=== PATIENT | female | born 1950 | race Caucasian/White ===

== ENCOUNTER 2019-01-08 10:55 | Emergency (ER) | payer OTHER ==
--- NOTE | 2019-01-08 10:56 | PDOC ---
History of Present Illness - General Chief Complaint: Pain, Acute Stated Complaint: RIGHT ARM PAIN Time Seen by Provider: 01/08/19 10:56 History Source: Patient Exam Limitations: No Limitations - History of Present Illness Initial Comments: 68 year old female with PMH spinal stenosis, chronic low back pain getting epidural steroid injections presented to ED for right wrist pain and left big toe pain s/p mechanical fall last night. Pt reported she was walking, felt her left sided sciatica, which caused her legs to give out, causing her to fall forward to the ground. She believes she was trying to brace herself with her arms on the way down. She denied head injury/LOC/vomiting, neck pain, back pain , headache, visual changes, weakness, numbness, tingling, abdominal pain, chest pain, shortness of breath, palpitations, elbow pain, knee pain, shoulder pain. Pt reported she took ibuprofen last night and this AM with minimal relief of her pain. ROS General: denied fever, chills, generalized weakness. HEENT: denied sore throat, rhinorrhea, ear pain. Cardiovascular: denied chest pain, palpitations, syncope, diaphoresis. Respiratory: denied shortness of breath, cough, sputum production, hemoptysis. Gastrointestinal: denied abdominal pain, nausea, vomiting, diarrhea, constipation, blood in stool. Genitourinary: denied dysuria, increased urinary frequency, hematuria, urinary incontinence, flank pain. Back: denied back pain. Musculoskeletal: admitted to wrist pain, wrist swelling, first toe pain, first toe swelling. Neurological: denied headache, dizziness, numbness, tingling, weakness. Integumentary: denied rash, laceration, abrasion. Hematologic/Lymphatic: denied bruising or bleeding. PE Constitutional: Well-nourished, Well-developed, appearing stated age. Airway: intact Breathing: bilateral breath sounds Circulation: 2+ carotid pulse B/L HEENT: head is normocephalic, atraumatic. No facial bones tenderness to palpation. No rendon sign. No raccoon eyes. EOMI. PERRLA. Neck: supple. Full ROM. no midline c-spine tenderness to palpation. No step offs. Cardiovascular: regular heart rhythm. no murmurs. no pericardial friction rub. Chest wall: No tenderness to palpation of anterior chest wall. No deformity to anterior chest wall. Respiratory: clear to auscultation bilaterally. no crackles, rhonchi or wheezing. no stridor. Gastrointestinal: soft, nontender. normal bowel sounds. no rebound, guarding, masses. No ecchymoses. Back: no midline T-spine or L-spine tenderness to palpation. No step offs. Pelvis: lower extremities equal in length without external rotation. No hip tenderness to palpation. Extremities: right wrist with swelling/deformity/ecchymoses/tenderness. 2+ radial pulse. neurovascularly intact right hand. no pain with elbow flexion/ extension. left 1st toe tenderness to DIP/PIP. no tenderness to left medial/ lateral malleulous, navicular area or base of 5th MT. Neurological: CN 2-12 grossly intact. moves all four extremities. Psych: awake, alert, oriented x3. follows commands. answers questions appropriately. Past History - Past Medical History Allergies/Adverse Reactions: Allergies Allergy/AdvReac Type Severity Reaction Status Date / Time aspirin Allergy Unknown unknown Verified 01/08/19 11:23 decongestants AdvReac Intermediate palpitation Uncoded 01/08/19 11:23 s triamterenehcth AdvReac Intermediate blurred Uncoded 01/08/19 11:23 vission dizziness Home Medications: Ambulatory Orders Gabapentin 300 mg PO TID 01/08/19 Procedures - Splinting Splint Location: Right: Forearm Pre-Proc Neuro Vasc Exam: normal Hand-Made Type: orthoglass Splint Type: Yes: Volar Post-Proc Neuro Vasc Exam: normal Александр Bandage: yes Sling: Yes Complications: No Post splint xray: No Medical Decision Making - Medical Decision Making 68 year old female with above PMH presented to ED for right wrist pain and left 1st toe pain s/p mechanical fall today she attributed to her sciata. Initial Vital Signs Temp Pulse Resp BP Pulse Ox 98.3 F 78 19 153/80 100 01/08/19 10:55 01/08/19 10:55 01/08/19 10:55 01/08/19 10:55 01/08/19 10:55 Afebrile. No tachycardia. No tachypnea. Hypertensive. No hypoxia on room air. Labs ordered: none Imaging ordered: right wrist XR, right forearm XR, left 1st toe/foot XR Medications ordered: Tylenol 975 mg PO once Forearm XR report: Name: [facility] DEPARTMENT OF RADIOLOGY Phys: Leila Morrell RESIDENT : 1950 Age: 68 Sex: F [facility] Acct: [id number] Loc: [facility] [address] Exam Date: 01/08/19 Status : [place] [address] Unit Number: [id number] EXAM#: TYPE/EXAM: RESULT: RAD/FOREARM- RIGHT ADDENDUM* ADDENDUM #[address] Morrell in the [facility] ER on 01/08/2019 at 1205 hours. ORIGINAL REPORT Right forearm: Pain. 2 views of the right forearm reveal a subtle distal radial impaction fracture. The other bones are intact. There is loss of bone density. Impression: Subtle distal radial impaction fracture. Wrist films would be helpful Reported By: Dejuan Jensen MD 01/08/19 1208 Right forearm: Pain. 2 views of the right forearm reveal a subtle distal radial impaction fracture. The other bones are intact. There is loss of bone density. Impression: Subtle distal radial impaction fracture. Wrist films would be helpful Reported By: Dejuan Jensen MD 01/08/19 1885 ----Name: [facility] DEPARTMENT OF RADIOLOGY Phys: Leila Morrell RESIDENT : 1950 Age: 68 Sex: F [facility] Acct: [id number] Loc: [facility] [address] Exam Date: 01/08/19 Status: [place] [address] Unit Number: [id number] EXAM #: TYPE/EXAM: RESULT: RAD/FOREARM- RIGHT Right forearm: Pain. 2 views of the right forearm reveal a subtle distal radial impaction fracture. The other bones are intact. There is loss of bone density. Impression: Subtle distal radial impaction fracture. Wrist films would be helpful Reported By: Dejuan Jensen MD 01/08/19 1156 Wrist XR report: Name: [facility] DEPARTMENT OF RADIOLOGY Phys: Leila Morrell RESIDENT : 1950 Age: 68 Sex: F [facility] Acct: [id number] Loc: [facility] [address] Exam Date: 01/08/19 Status : [place] [address] Unit Number: [id number] EXAM#: TYPE/EXAM: RESULT: [id number] RAD/WRIST- RIGHT ADDENDUM * ADDENDUM #1 The wrist image configuration does not match the right forearm image configuration. Could this be the opposite wrist? Spoke with Rangel the technologist who insists the two sets of images are of the right side. Follow up imaging is needed to clarify this. Spoke with Dr. Morrell regarding this. ORIGINAL REPORT Right wrist: Pain. 3 views of the right wrist show a questionable navicular fracture but the distal radius appears intact. This does not coincide with what is seen on the forearm films which a distal radial fracture is suggested. Clinical correlation suggested. Further imaging may be needed. Findings discussed with ER staff at [facility]/Dr. Morrell 01/08/2019 at 1205 hours. Reported By: Dejuan Jensen MD 01/08/19 1234 Right wrist: Pain. 3 views of the right wrist show a questionable navicular fracture but the distal radius appears intact. This does not coincide with what is seen on the forearm films which a distal radial fracture is suggested. Clinical correlation suggested. Further imaging may be needed. Findings discussed with ER staff at [facility]/Dr. Morrell 01/08/2019 at 1205 hours. Reported By: Dejuan Jensen MD 01/08/19 1207 Left foot/toes XR report: Name: [facility] DEPARTMENT OF RADIOLOGY Phys: Leila Morrell RESIDENT : 1950 Age: 68 Sex: F [facility] Acct: [id number] Loc: [facility] [address] Exam Date: 01/08/19 Status : [place] [address] Unit Number: [id number] EXAM#: TYPE/EXAM: RESULT: [id number] RAD/FOOT-LEFT Left foot: Pain. Fall. 3 views of the left foot have been submitted. There is loss of bone density with a fracture at the base of the fifth metatarsal and a possible fracture of the distal phalanx of the great toe. There is bunion formation by the first MTP joint and other arthritic changes in the toes. Correlation recommended. Reported By: Dejuan Jensen MD 01/08/19 1155 Pt informed of results. Pt refused hard sole shoe. Pt reported no pain to the base of the 5th MT, no tenderness on exam. Pt confirmed she only had XR of her left foot and right upper extremity, denied having the left upper extremity imaged. Imaging ordered: CT left upper extremity 01/08/19 13:59 CT report: Name: [facility] DEPARTMENT OF RADIOLOGY Phys: Leila Morrell RESIDENT : 1950 Age: 68 Sex: F [facility] Acct: [id number] Loc: [address] Exam Date: 01/08/19 Status: [facility] [place] [id number] Unit Number: [id number] EXAM #: TYPE/EXAM: RESULT: [id number] CT/UPPER EXTREMITY CT W/O CONTR History provided : Trauma. Sequential axial images were obtained through the right wrist. Coronal and sagittal reconstructed images were also performed. There is a nondisplaced fracture through the distal radius predominantly involving the posterior metaphysis. No additional fractures or acute bony abnormalities are identified. There is no evidence of a navicular fracture. There is no evidence of soft tissue masses or fluid collections. IMPRESSION: Distal radial fracture. Reported By: Alexandre Castillo MD 01/08/19 1346 01/08/19 14:57 Pt placed in volar splint right forarm, see procedure note. Pt's 1st and 2nd toes bess taped. Pt refused ortho hard shoe. Pt given shoe and advised to use it. Pt give copies of CD images. Pt discharged. Discharge - Discharge Information Problems reviewed: Yes Clinical Impression/Diagnosis: Distal radius fracture, Fall, Fracture of base of fifth metatarsal bone Condition: Improved Disposition: HOME - Admission No - Follow up/Referral - Patient Discharge Instructions Additional Instructions: Follow up with your Orthopedic and primary care doctor within 3 days regarding your Emergency Department visit. Bring all paperwork and CDs given to you today to your appointments. Take Tylenol and or Ibuprofen over the counter for pain. They are not the same medication and can be used together. Keep the wrist above the heart to decrease the swelling. Apply ice over a towel to the affected area. 20 minutes on and 20 minutes off. Do not get the splint wet, use a garbage bag over the area when showering. Return to the Emergency Department for increasing pain, vomiting, fever, lightheadedness, chest pain, shortness of breath, inability to move fingers, blue fingers, or any other new, worsening or concerning symptoms. - Post Discharge Activity Work/Back to School Note: Back to Work
[2019-01-08] MEDS ORDERED: ACETAMINOPHEN 325 MG TABLET (FP) PO ONE (11:26)
--- NOTE | 2019-01-08 11:32 | PDOC ---
Attending Attestation - Resident Resident Name: Leila Morrell - ED Attending Attestation I have performed the following: I have examined & evaluated the patient, The case was reviewed & discussed with the resident, I agree w/resident's findings & plan, Exceptions are as noted - HPI HPI: 01/08/19 11:31 68y F hx of Spinal stenosis, complicated by sciatica presents with complaint Of right wrist pain and left toe pain status post fall. Patient states she was in her usual state of health was walking in her living room when she felt her typical sciatic pain and her left leg gave out causing her to fall on outstretched hand, She also thinks that her left foot must have struck the foot furniture. Patient denies any head injury, neck pain, chest pain, palpitations, shortness of breath, recent fever, chills, cough, leg swelling GENERAL: The patient is awake, alert, and fully oriented, Nontoxic - in no acute distress. HEAD: Normocephalic, atraumatic. NECK: Normal range of motion, supple LUNGS: Breath sounds equal, clear to auscultation bilaterally. No wheezes, no rhonchi, no rales. HEART: Regular rate and rhythm, normal S1 and S2 without murmur, rub or gallop. ABDOMEN: Soft, nontender, No guarding, no rebound. No CVA tenderness EXTREMITIES: Mild tenderness to the right wrist with some swelling, no obvious deformity, Neurovascularly intact, tenderness and ecchymosis to the right great toe, no focal tendenress on kasi rest of the forefoot/5th metatarsals or ankles. NEUROLOGICAL: No facial assymetry, Normal speech, Moving all 4 extremities spontaneously symmetrically PSYCH: Normal mood, normal affect. SKIN: Warm, Dry, normal turgor, X-rays noted for the likely wrist fracture, questionable navicular fracture will obtain CT Anticipate placing a splint on the patient will also bess tape toes and give the patient Hardsole shoe for her right toe injury. Formal read of the patient's foot x-ray noted for proximal fifth metatarsal fracture however the patient has no focal tenderness there, ?old injury - Medical Decision Making 01/08/19 14:23 CT results noted for distal radius fracture, no signs of navicular fracture We will discharge the patient with Ortho follow-up, as well as splinting her wrist and bess taping her toe Will discharge with a follow-up
[2019-01-08 11:36] VITALS: BP 153/80; PULSE 78; TEMP 98.3; BMI 20.1
[2019-01-08] MEDS ORDERED: ACETAMINOPHEN 325 MG TABLET (FP) ONE (12:05)
== END 2019-01-08 15:28 | disposition home or self-care (01) ==
LOC: FER 10:55
PROC: 2W3CX1Z Immobilization of Right Lower Arm using Splint (ICD-10-PCS; principal; 2019-01-08)
DX: S52.501A Unspecified fracture of the lower end of right radius, initial encounter for closed fracture (principal); S92.352A Displaced fracture of fifth metatarsal bone, left foot, initial encounter for closed fracture; W18.39XA Other fall on same level, initial encounter; Y93.01 Activity, walking, marching and hiking; Y92.008 Other place in unspecified non-institutional (private) residence as the place of occurrence of the external cause; M54.30 Sciatica, unspecified side; M54.5 Low back pain; G89.29 Other chronic pain; Z79.82 Long term (current) use of aspirin; Z88.8 Allergy status to other drugs, medicaments and biological substances
CPT/HCPCS: 73090-TC-RT-FY; 73110-TC-RT-FY; 73200-TC-RT; 73630-TC-LT; 73660-TC-LT-FY; 99283-25

== ENCOUNTER 2020-05-11 19:29 | Inpatient (IN) | payer OTHER ==
[2020-05-11] MEDS ORDERED: SODIUM CHLORIDE 1,000 ML IV ONE (20:29)
[2020-05-11 21:09] LABS: BASO % 1.2 % (0-2.0); EOS % 0.2 % (0-4.5); HEMATOCRIT 40.5 % (32.4-45.2); HEMOGLOBIN 13.8 GM/dl (10.7-15.3); LYMPH % 9.1 % (8-40); MCH 39.3 pg (25.7-33.7); MCHC 34.1 g/dl (32.0-36.0); MEAN CELL VOLUME 115.3 fl (80-96); MEAN PLT VOLUME 7.7 fl (7.5-11.1); MONO % 13.6 % (3.8-10.2); NEUT % 75.9 % (42.8-82.8); PLATELET COUNT 198 K/MM3 (134-434); RBC 3.51 M/mm3 (3.60-5.2); RDW 13.4 % (11.6-15.6); WHITE BLOOD COUNT 11.3 K/mm3 (4.0-10.8)
[2020-05-11 21:44] LABS: ALBUMIN 4.5 g/dl (3.4-5.0); BILIRUBIN,TOTAL 1.3 mg/dl (0.2-1); CALCIUM 9.6 mg/dl (8.5-10); CREATININE 0.5 mg/dl (0.55-1.3); POTASSIUM 3.9 mmol/L (3.5-5.1)
[2020-05-11 21:57] LABS: EPITHELIAL CELLS MODERATE /hpf
[2020-05-11] MEDS ORDERED: DEXTROSE 5%-0.45% SALINE 1,000 ML IV SCH (22:45)
[2020-05-11 22:49] LABS: LACTIC ACID 2.1 mmol/L (0.4-2.0)
[2020-05-11] MEDS ORDERED: morphine CARPU-JECT 2 MG/1 ML DISP.SYRIN IVPUSH ONE (23:32)
[2020-05-11] MEDS ORDERED: morphine SULFATE 4 MG/ML VIAL ONE (23:34)
[2020-05-11] MEDS ORDERED: PANTOPRAZOLE SODIUM 40 MG VIAL ONE (23:45)
[2020-05-12] MEDS ORDERED: oxyCODONE HCL 5 MG TABLET PO PRN (00:36)
[2020-05-12 01:11] VITALS: BMI 20.5
[2020-05-12] MEDS: LORazepam 0.5 MG TABLET PO PRN ×2 (01:18→21:11)
[2020-05-12] MEDS: NICOTINE 14 MG/24 HOURS TOPICAL PATCH TD SCH ×2 (01:54→10:31)
[2020-05-12] MEDS: oxyCODONE HCL 5 MG TABLET PO PRN ×2 (03:20→15:03)
[2020-05-12] MEDS: METOCLOPRAMIDE HCL 10 MG TABLET (FP) PO SCH ×2 (07:36→09:17)
[2020-05-12 09:16] LABS: HEMATOCRIT 33.9 % (32.4-45.2); HEMOGLOBIN 11.5 GM/dl (10.7-15.3); MCH 38.6 pg (25.7-33.7); MCHC 33.9 g/dl (32.0-36.0); MEAN CELL VOLUME 113.9 fl (80-96); MEAN PLT VOLUME 7.9 fl (7.5-11.1); PLATELET COUNT 170 K/MM3 (134-434); RBC 2.98 M/mm3 (3.60-5.2); RDW 13.3 % (11.6-15.6); WHITE BLOOD COUNT 7.6 K/mm3 (4.0-10.8)
[2020-05-12] MEDS: PANTOPRAZOLE SODIUM 40 MG VIAL IVPUSH SCH ×2 (09:16→21:11)
[2020-05-12] MEDS ORDERED: cefTRIAXone SODIUM 1 GM VIAL ONE (09:21)
[2020-05-12] MEDS ORDERED: DEXTROSE 5%-WATER - 50 ML IVPB ONE (09:21)
[2020-05-12 09:22] LABS: ALBUMIN 3.9 g/dl (3.4-5.0); BILIRUBIN,TOTAL 1.6 mg/dl (0.2-1); CALCIUM 8.7 mg/dl (8.5-10); CREATININE 0.4 mg/dl (0.55-1.3); POTASSIUM 3.4 mmol/L (3.5-5.1); TOT PROT 6.2 g/dl (6.4-8.2)
[2020-05-12] MEDS: CEFTRIAXONE 1 GM in DEXTROSE 5%-WATER - 50 ML IVPB SCH (09:22)
[2020-05-12] MEDS ORDERED: MAGNESIUM SULF 50% (8.12 MEQ/2 ML-1 GM VIAL) IVPB ONE (09:30)
[2020-05-12] MEDS ORDERED: POTASSIUM CHLORIDE TABS 20 MEQ TABLET.ER (FP) PO ONE (09:30)
[2020-05-12] MEDS: METOPROLOL TARTRATE 25 MG TABLET (FP) PO SCH ×2 (09:44→21:12)
[2020-05-12] MEDS: amLODIPine BESYLATE 10 MG TABLET (FP) PO SCH (10:26)
[2020-05-12] MEDS: ONDANSETRON 4 MG/2 ML VIAL IVPUSH PRN (14:01)
[2020-05-12] MEDS ORDERED: BACLOFEN 10 MG TABLET (FP) PO SCH (22:00)
[2020-05-13] MEDS: ONDANSETRON 4 MG/2 ML VIAL IVPUSH PRN (08:11)
[2020-05-13 08:24] LABS: BASO % 2.1 % (0-2.0); EOS % 1.2 % (0-4.5); HEMATOCRIT 35.8 % (32.4-45.2); HEMOGLOBIN 11.9 GM/dl (10.7-15.3); LYMPH % 14.1 % (8-40); MCH 38.5 pg (25.7-33.7); MCHC 33.3 g/dl (32.0-36.0); MEAN CELL VOLUME 115.4 fl (80-96); MEAN PLT VOLUME 7.8 fl (7.5-11.1); MONO % 8.7 % (3.8-10.2); NEUT % 73.9 % (42.8-82.8); PLATELET COUNT 166 K/MM3 (134-434); RBC 3.11 M/mm3 (3.60-5.2); RDW 13.1 % (11.6-15.6); WHITE BLOOD COUNT 5.9 K/mm3 (4.0-10.8)
[2020-05-13 08:33] LABS: ALBUMIN 3.7 g/dl (3.4-5.0); BILIRUBIN,TOTAL 0.8 mg/dl (0.2-1); CALCIUM 9.1 mg/dl (8.5-10); CREATININE 0.5 mg/dl (0.55-1.3); MAGNESIUM 1.8 mg/dL (1.8-2.4); POTASSIUM 3.9 mmol/L (3.5-5.1)
[2020-05-13] MEDS ORDERED: cefTRIAXone SODIUM 1 GM VIAL ONE (09:01)
[2020-05-13] MEDS ORDERED: DEXTROSE 5%-WATER - 50 ML IVPB ONE (09:02)
[2020-05-13] MEDS: PANTOPRAZOLE SODIUM 40 MG VIAL IVPUSH SCH (09:14)
[2020-05-13] MEDS: CEFTRIAXONE 1 GM in DEXTROSE 5%-WATER - 50 ML IVPB SCH (09:14)
[2020-05-13] MEDS: amLODIPine BESYLATE 10 MG TABLET (FP) PO SCH (09:15)
[2020-05-13] MEDS: METOPROLOL TARTRATE 25 MG TABLET (FP) PO SCH (09:15)
[2020-05-13] MEDS ORDERED: NICOTINE 14 MG/24 HOURS TOPICAL PATCH TD SCH (10:00)
[2020-05-13 13:39] VITALS: BP 110/60; PULSE 79; TEMP 98.2
[2020-05-13] MEDS ORDERED: LORazepam 0.5 MG TABLET PO PRN (22:00)
== END 2020-05-13 15:30 | disposition home or self-care (01) | DRG 378 ==
LOC: FER 19:29 → FM/S 22:35 → UNDOADMIN 05-12 00:24 → FM/S 05-12 00:24
PROVIDERS: ADMIT Internal Medicine; ATTEND Nurse Practitioner Acute Care
PROC: 0DB68ZX Excision of Stomach, Via Natural or Artificial Opening Endoscopic, Diagnostic (ICD-10-PCS; 2020-05-13)
PROC: 0DB38ZX Excision of Lower Esophagus, Via Natural or Artificial Opening Endoscopic, Diagnostic (ICD-10-PCS; 2020-05-13)
PROC: 0DB98ZX Excision of Duodenum, Via Natural or Artificial Opening Endoscopic, Diagnostic (ICD-10-PCS; principal; 2020-05-13 12:51)
DX: K29.71 Gastritis, unspecified, with bleeding (principal); N39.0 Urinary tract infection, site not specified; E87.1 Hypo-osmolality and hyponatremia; K20.91 Esophagitis, unspecified with bleeding; I10 Essential (primary) hypertension; J43.9 Emphysema, unspecified; F17.210 Nicotine dependence, cigarettes, uncomplicated; R19.7 Diarrhea, unspecified
CPT/HCPCS: 36415; 71045-TC-FY; 74177-TC; 80053; 81003; 81015; 82248; 82550; 82607; 82728; 83540; 83550; 83605; 83690; 83735; 84484; 85025; 85027; 85045; 86850; 86900; 86901; 87086; 88305-TC; 88342-TC; 93005; 99285-25; C9803; J0475; Q9967; U0003; U0005